=== PATIENT | male | born 2000 | race Caucasian/White ===

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

== ENCOUNTER 2019-12-01 13:38 | Emergency (ER) | payer BC ==
[~2019-12-01] VITALS: Ht 167.6 cm; Wt 69.9 kg
--- NOTE | 2019-12-01 13:44 | NUR ---
SEEN AND EXAMINED BY .
[2019-12-01 13:45] VITALS: BP 124/76
--- NOTE | 2019-12-01 13:57 | NUR ---
PT IS BACK FROM THE CT SCAN.
--- NOTE | 2019-12-01 15:23 | NUR ---
Patient discharged to home in stable condition. Written and verbal after care instructions given. Patient verbalizes understanding of instruction.
== END 2019-12-01 15:24 | disposition home or self-care (01) ==
LOC: ER 13:43
DX: S06.0X0A Concussion without loss of consciousness, initial encounter (principal); S00.83XA Contusion of other part of head, initial encounter; R41.82 Altered mental status, unspecified; Z60.2 Problems related to living alone; V00.131A Fall from skateboard, initial encounter; Y93.51 Activity, roller skating (inline) and skateboarding; Y92.89 Other specified places as the place of occurrence of the external cause; Y99.8 Other external cause status
CPT/HCPCS: 70450-TC; 70486-TC

== ENCOUNTER 2020-01-11 11:25 | Emergency (ER) | payer BC ==
[~2020-01-11] VITALS: Ht 170.2 cm; Wt 68.0 kg
[2020-01-11 11:42] VITALS: BP 139/77
--- NOTE | 2020-01-11 12:39 | NUR ---
Patient discharged to home in stable condition. Written and verbal after care instructions given. Patient verbalizes understanding of instruction.
== END 2020-01-11 12:40 | disposition home or self-care (01) ==
LOC: ER 11:44
DX: S70.02XA Contusion of left hip, initial encounter (principal); Z60.2 Problems related to living alone; V00.131A Fall from skateboard, initial encounter; Y93.51 Activity, roller skating (inline) and skateboarding; Y92.89 Other specified places as the place of occurrence of the external cause; Y99.8 Other external cause status
CPT/HCPCS: 73502